=== PATIENT | male | born 1960 | race Caucasian/White ===

== ENCOUNTER 2024-01-17 21:31 | Inpatient (IN) | payer OTHER, SELFPAY ==
[2024-01-17 16:38] VITALS: BP 148/81
[2024-01-17 16:57] LABS: % Basophils 0.8 % (0-2); % Eosinophils 0.5 % (0-6); % Immature Granulocytes 0.3 % (0-0.5); % Lymphocytes 27.8 % (20.5-51.1); % Neutrophils 60.6 % (42.2-75.2); Absolute Basophils 0.1 10^3/uL (0-0.2); Absolute Monocytes 0.7 10^3/uL (0.1-0.6); Absolute Neutrophils 4.4 10^3/uL (1.4-6.5); Hematocrit 34.5 % (39.0-52.0); Hemoglobin 11.9 g/dL (13.0-18.0); Mean Corp Hgb Conc. 34.5 g/dL (33.0-37.0); Mean Corpuscular Hgb 29.7 pg (27.0-31.0); Mean Platelet Volume 9.7 fL (7.4-10.4); Nucleated Red Blood Cells % 0 % (-); Platelet Count 248 10^3/uL (130-400); Red Blood Cell Count 4.01 10^6/uL (4.70-6.10); Red Cell Dist. Width 12.9 % (11.5-14.5); White Blood Cell Count 7.3 10^3/uL (4.8-10.8)
[2024-01-17 17:11] LABS: ALT (SGPT) 20 U/L (0-50); AST (SGOT) 25 U/L (17-59); Albumin 3.8 g/dl (3.5-5.0); Alkaline Phosphatase 119 U/L (38-126); Blood Urea Nitrogen 9 mg/dl (9-20); Calcium 8.6 mg/dl (8.4-10.2); Carbon Dioxide 27 mmol/L (22-30); Chloride 97 mmol/L (98-107); Glucose 123 mg/dl (70-99); Potassium 2.7 mmol/L (3.5-5.1); Sodium 131 mmol/L (135-145); Total Bilirubin 2.4 mg/dl (0.2-1.3); Total Protein 7.3 g/dl (6.3-8.2); eGFR > 60.00
[2024-01-17 17:18] LABS: NT-proBNP 458 pg/ml
[2024-01-17 17:21] VITALS: BP 129/87
[2024-01-17 17:25] VITALS: BMI 29.5
[2024-01-17 17:55] VITALS: BP 122/83
[2024-01-17] MEDS: KCL 40 MEQ PO ×2 (17:57→22:46)
--- NOTE | 2024-01-17 17:57 | ED.GENMED ---
Addendum entered and electronically signed by Gigi Beth DO 01/17/24 19:33:
Update
reviewed the clinical surge with the patient he tells me his son had a valvular surgery at age 26 for the patient was referred to his PCP underwent echocardiogram recently in the past few years that patient states was okay but he did have a dilated
aorta
I was able to review the report, he did have a dilated aorta also had mitral regurg and mild to moderate
Original Note:
History of Present Illness
General
Chief Complaint: Swelling
Source: patient
Exam Limitations: none
Time Seen by Provider: 01/17/24 17:19
Nursing documentation reviewed up to this point in time: agreed with
Travel History
Have you had any contact with someone who has COVID-19?: No
Do you have any symptoms of coronavirus? Fever > 100 degrees, chills, cough, shortness of breath, sore throat, loss of taste or smell, muscle aches, or headache?: No
History of Present Illness
History of Present Illness:
63-year-old male history of hypertension on hydrochlorothiazide and enalapril also amlodipine Lipitor
Presents from PCP office for evaluation of scrotal edema lower extremity edema shortness of breath 10 pound weight gain
Symptoms started a few weeks ago when he was in [place] he had a flulike illness fairly severe he states, treated with antibiotics, developed edema of his scrotum lower extremities went to [place] on a trip states friends noticed that his legs
were swollen states he is short of breath the past day or so, has been able to lie flat at night, no history of heart failure
Past History
Past History
ED Past Medical History: HTN, Hypercholesterolemia and Psychiatric
ED Past Surgical History: Orthopedic
Social History
Tobacco: Non-smoker
Alcohol: None
Drug: None
Personal:
Living: with family
Employment: Employed
Review of Systems
Review of Systems
All Other Systems: Not applicable
Constitutional: Reports weight gain; Denies fatigue
EENT: Reports no symptoms
Respiratory: Reports trouble breathing
Cardiac: Denies chest pain or palpitations
ABD/GI: Reports other (Bloating in his lower abdominal pannus)
: Reports other (Scrotum swelling)
Musculoskeletal: Reports no symptoms
Skin: Reports no symptoms
Neurological: Reports no symptoms
Endocrine: Reports no symptoms
Hematologic/Lymphatic: Reports no symptoms
Phy Exam
Physical Exam
Physical Exam:
Physical Exam
General: no apparent distress, not acutely ill
Neck: Positive JVD
Heart: Regular
Lungs: No crackles
Abdomen: Soft, mild anasarca in the abdominal pannus into the scrotum
Neuro: alert and oriented. no focal neurological deficits
Skin: no rash
Psychiatric: well kept. interactive and cooperative
Extremities: 2+ edema
Scores
Heart Failure Risk
Heart Failure Risk Score: Yes
History of Stroke or TIA: No
History of intubation for respiratory distress: No
Heart rate on ED arrival >/= 110: No
SaO2 <90% on arrival on room air: No
HR >/=110 during 3min walk test (or too ill to perform test): Yes
ECG has acute ischemic changes: No
Urea >/=12mmol/L (BUN 33.6mg/dL): No
Serum CO2>/=35mmol/L: No
Troponin I or T elevated to CA Level (0.4mg/dL): No
NT-proBNP >/=5,000ng/L (5,000pg/ml): No
HF Risk Score: 2
Admission Status: MEDIUM RISK 9.2% Consider observation or discharge to home with homecare & f/u visit to PCP/[employer]fuels [employer] Manager, or SNF for treatment
Course
Orders/Labs/Results
Orders:
Orders
01/17/24 16:50
BNP [NT-proBNP] Urgent
Complete Blood Count/With Diff Urgent
Comprehensive Metabolic Panel Urgent
Magnesium Urgent
Comment: ADD ON
01/17/24 17:47
CR Chest - 2 Views Urgent
Comment:
Reason For Exam: sob chf
01/17/24 17:48
Add On- LAB Urgent
Tests Added?: magnesium
Potassium Chloride [KCl] 40 meq PO NOW STA
01/17/24 17:54
Electrocardiogram (*1) Urgent
Reason for Study: Heart Failure, Left
EKG- Treatment ONCE
01/17/24 17:56
Troponin I Urgent
01/17/24 17:58
Potassium Chloride [KCl] 40 meq 0.9% Sodium Chloride 250 ml [Nss] 250 ml IV NOW
01/17/24 18:38
Furosemide [Lasix] 40 mg IV NOW STA
Abnormal Lab Results
01/17/24
16:50
RBC 4.01 L 10^6/uL
(4.70-6.10)
Hgb 11.9 L g/dL
(13.0-18.0)
Hct 34.5 L %
(39.0-52.0)
Absolute Monos (auto) 0.7 H 10^3/uL
(0.1-0.6)
Monocytes % 10.0 H %
(1.7-9.3)
Sodium 131 L mmol/L
(135-145)
Potassium 2.7 L* mmol/L
(3.5-5.1)
Chloride 97 L mmol/L
(98-107)
Creatinine 0.6 L mg/dL
(0.7-1.3)
Glucose 123 H mg/dl
(70-99)
Total Bilirubin 2.4 H mg/dl
(0.2-1.3)
01/17/24 16:50
01/17/24 16:50
Vital Signs
Initial and Last Documented VS:
Initial Vital Signs
Temp Pulse Resp BP Pulse Ox
97.9 F 104 16 148/81 96
01/17/24 16:38 01/17/24 16:38 01/17/24 16:38 01/17/24 16:38 01/17/24 16:38
Last Documented Vital Signs
Temp Pulse Resp BP Pulse Ox
97.9 F 97 11 123/87 99
01/17/24 16:38 01/17/24 19:00 01/17/24 19:00 01/17/24 18:42 01/17/24 19:00
MDM/Problems Addressed
Differential Diagnosis Includes:
Heart failure poststreptococcal glomerulonephritis cardiomyopathy postviral cardiomyopathy dependent edema intra-abdominal process
MDM/Problems Addressed:
Lower extremity edema scrotal edema
Chronic conditions affecting care: HTN
Acute Exacerbation and/or Progression of Chronic Illness: HTN
*Radiology
Radiology exam reviewed: preliminary read by ED provider
*Pulse Oximetry
Patient hypoxic: no
*Toggler Interpretation
Rate: normal
Interpretation: normal
Heart Rate: 78
Rhythm: sinus
*Critical Care Note
Total Time (30-74mins, 75-104mins- exclusive of procedures): Not Applicable
Update Note
Update Note:
6:45 PM chest x-ray proBNP noted, troponin pending, will start diuretics, will replete his potassium first,
ED Attending Note
-
Portions of this chart may have been created with voice recognition software.� Occasional wrong word or��sound alike� substitutions may have occurred due to the inherent limitations of voice recognition software.
Discharge Plan
Departure
Patient Disposition: Admit
Date of Disposition: 01/17/24
Time of Disposition: 19:22
Admit to: Telemetry
Presentation/result/management discussed w/ accepting MD/DO: Hospitalist
Patient with high blood pressure during this ER visit?: Yes
Condition: Fair
Discharge Problem:
Scrotal edema, CHF (congestive heart failure)
Prescriptions:
No Action
atorvastatin [Lipitor] 20 mg Tablet
20 mg PO HS
enalapril maleate 10 mg Tablet
10 mg PO DAILY
tamsulosin [Flomax] 0.4 mg Capsule
0.4 mg PO QPM
amlodipine [Norvasc] 10 mg Tablet
10 mg PO DAILY
hydrochlorothiazide 25 mg Tablet
25 mg PO DAILY
escitalopram oxalate [Lexapro] 20 mg Tablet
20 mg PO DAILY
clonazepam 0.5 mg Tablet
0.25 mg PO DAILYPRN PRN (Reason: anxiety)
ibuprofen [Advil] 200 mg Tablet
400 mg PO BIDPRN PRN (Reason: mild pain)
Referrals:
Daquan Lewis CRNP [Family Provider] -
Interventions
Interventions:
*Risk Screen - Suicide Last Done: 01/17/24 17:25
*General Assessment Last Done: 01/17/24 16:41
*Neglect/Abuse Screening Last Done: 01/17/24 17:25
ED- Fall Risk Assessment Last Done: 01/17/24 17:25
*ED COVID-19 Vaccine History Last Done: 01/17/24 16:41
ED- Cardiac Assessment Last Done: 01/17/24 17:25
ED- Pulmonary Assessment Last Done: 01/17/24 17:25
ED-Skin Assessment Last Done: 01/17/24 17:25
[2024-01-17 18:00] VITALS: BP 123/87
[2024-01-17 18:29] LABS: Troponin I < 0.012 ng/ml
[2024-01-17] MEDS: KCL 270 MEQ IV (18:30)
[2024-01-17 18:36] LABS: Magnesium 2.1 mg/dl (1.6-2.3)
[2024-01-17] MEDS: LASIX 40 MG IV (18:42)
[2024-01-17 19:00] VITALS: BP 109/82
--- NOTE | 2024-01-17 20:54 | HPS.HSE ---
Family Physician
-
Family Physician: LILY Rutledge
Chief Complaint
-
SOB/Leg and Testicular Swelling x weeks
History of Present Illness
63yo M with PMH HTN/HLD, Anxiety/Depression, Hyponatremia, BPH presents to ER c/o SOB/Cough/Testicular swelling worsening over past fwe weeks. Pt states at end of november he had covid. In december he was then found to have the flu. He had associated
cough and was also treated with unknown course of abx. In early January pt started to notice testicular swelling which improved with sitting up right. He then went on vacation in [place] 01/07/2024 and since then has noticed increase SOB with mild
dyspnea, nonproductive cough, and increasing leg/testicular swelling. Denies leg pain or erythema. Denies F/C. Pt does state last year he followed with electric motor repairman Dr. Romero because his son was diagnosed with valvular heart disease at age 32yo but
he underwent echo last which only showed aortic root dilation (4.1cm), Mild-Mod MR, EF 55-60%. Denies dizziness/LH, CP, Palps, wheezing, abd pain, n/v/d/c, dsyuria, calf or leg pain.
ER course: Presents with V.S.S. Na 131, K 2.7, BUN/Cr 9/0.6, Trop 0.012, BNP 458, Tbili 2.4 (LFTs otherwise wnl). S/P 40mg IV lasix and 40meq KCL IV and 40meq KCL PO in ER.
Medical History
Past Medical History
Past Medical History: Reports Other (HTN/HLD, Anxiety/Depression, BPH, Hx COVID/Flu (11/2023-12/2023))
Past Surgical History: Reports Other (Right Shoulder Dislocation Sx)
Social History
Tobacco: Non-smoker
Alcohol: Occasional (1-2 beers twice weekly)
Drug: None
Family History
Family History: Other (Mother: Alzheimers; Sister: Myeloma; Brother: Colon Cancer; Son: Valvular Heart Disease; Father: Hodgkins Lymphoma)
Allergies / Home Medications
Allergies reflects when Allergies were last updated in [facility].
Home Medications with original date entered in [facility]
Allergy/Medication List:
Allergies
Allergy/AdvReac Type Severity Reaction Status Date / Time
No Known Allergies Allergy Verified 01/17/24 16:45
Home Medications
amlodipine 10 mg tablet (Norvasc) 10 mg PO DAILY 01/17/24
atorvastatin 20 mg tablet (Lipitor) 20 mg PO HS 01/17/24
clonazepam 0.5 mg tablet 0.25 mg PO DAILYPRN PRN anxiety 01/17/24
enalapril maleate 10 mg tablet 10 mg PO DAILY 01/17/24
escitalopram oxalate 20 mg tablet (Lexapro) 20 mg PO DAILY 01/17/24
hydrochlorothiazide 25 mg tablet 25 mg PO DAILY 01/17/24
ibuprofen 200 mg tablet (Advil) 400 mg PO BIDPRN PRN mild pain 01/17/24
tamsulosin 0.4 mg capsule (Flomax) 0.4 mg PO QPM 01/17/24
Review of Systems
-
A 12 point ROS was completed and negative except as noted: Yes
Physical Exam
Vital Signs
Vital Signs
Temp Pulse Resp BP Pulse Ox
97.9 F 97 11 123/87 99
01/17/24 16:38 01/17/24 19:00 01/17/24 19:00 01/17/24 18:42 01/17/24 19:00
Physical Exam
General: Well Developed, Well Nourished and No Apparent Distress
HEENT: NormoCephalic, Moist mucous membranes and Atraumatic
Respiratory: Clear
Cardiac: S1/S2 and Regular Rhythm; No Murmur or Rub
GI: Soft, Non Tender, Non Distended and Normal Bowel Sounds; No Organomegaly
Rectal: Deferred by Provider
Genito-urinary: Other (Maximiliano Ball Size Testicular swelling, no erythema or TTP. )
Musculoskeletal: No Clubbing, No Cyanosis and Other (+B/L LE Edema 2-3+)
Skin: No Rash
Neuro: Awake, Alert, AO x 3 and Nonfocal/grossly intact
Hematologic/Lymphatic: No Lymphadenopathy
Psych: Calm
Laboratory Results
-
01/17/24 16:50
01/17/24 16:50
Laboratory Results
Total Bilirubin 2.4 mg/dl (0.2-1.3) H 01/17/24 16:50
AST 25 U/L (17-59) 01/17/24 16:50
ALT 20 U/L (0-50) 01/17/24 16:50
Alkaline Phosphatase 119 U/L (38-126) 01/17/24 16:50
Troponin I < 0.012 ng/ml 01/17/24 17:56
Data Reviewed
-
Diagnostic Radiology: Image Personally Visualized and interpreted
Lab Data: Labs Reviewed by me
Old Records: Reviewed
Impression/Plan
-
Volume Overload 2/2 Suspected New Onset CHF
- BNP 458. CXR with b/l small effusions. No hypoxia. 2-3+ pitting edema with tennis ball size testicular swelling.
- TTE reviewed 11/2022:
Normal biventricular size and systolic function without regional wall motion
�abnormality. Estimated LVEF 55-60%.
�Mild to moderate mitral regurgitation.
�Aortic sclerosis without stenosis.
�Dilated aortic root measures 4.1 cm at SOV. Dilated proximal ascending aorta
�measures 4.7 cm.
- Repeat TTE. 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
- S/P 40mg IV lasix in ER. Continue 40mg IV daily (holding home HCTZ). Monitor electrolytes closely and replete accordingly
- Cardiology consulted.
Abnormal EKG (TWI/QT prolongation)
- No chest pain. Trop 0.012. EKG NSR @ 98bpm, TWI II-AVF, QTC 513ms (no prior for comparison)
- Follow up TTE. Replete electrolytes and repeat EKG for AM
- Check Lipids/A1C
- Cardio consulted.
Hypokalemia
- K 2.7. S/P 120meq in total in ER, Repeat in AM
Hyponatremia
- Na 127. Likely hypoosmotic hypervolemic etiology. Trend with IV diuresis. 1500cc fluid restriction.
Hyperbilirubinemia
- Suspect passive liver congestion in setting of CHF. Repeat with in AM with IV diuresis.
HTN/HLD
- BP wnl on admission. Will hold home amlodipine/hctz to allow for additional diuresis
- Continue home chadwick-i. Follow trends on IV lasix.
Anxiety/Depression
- Continue home benzo prn.
Code status: Full Code
Diet: 1500cc fluid restriction, low cholesterol diet
PPx: Lovenox.
[2024-01-17 22:10] VITALS: BP 142/91; BMI 28.3
--- NOTE | 2024-01-17 22:19 | PTCARENOTE ---
pt arrived from ed, walked in unassisted, tele placed, VSS pt arrived with IV KCL running. see MAR and assessment for further details. call camp within reach.
[2024-01-17] MEDS: LIPITOR 20 MG PO (22:46)
[2024-01-18 03:15] VITALS: BP 110/69
[2024-01-18 06:00] VITALS: BMI 28.0
--- NOTE | 2024-01-18 07:34 | W.PN.HOSP.TC ---
Today's Communication/Plan
-
see bold
Assessment / Plan
Assessment / Plan
Gen: NAD, AAOx3.
Eyes: EOMI, PERRLA, no scleral icterus.
Neck: supple.
CV: RRR, +S1/S2, no m/r/g.
Resp: CTAB, no rales, wheezes, or rhonchi.
Abd: +BS, soft, NT, ND
Skin: No rashes. Trace LE edema
Neuro: CN 2-12 intact, non-focal.
Psych: Normal mood and affect.
CXR: Small bilateral pleural effusions.
Acute CHF:
-BNP 458. CXR with b/l small effusions. No hypoxia.
-check echo
-cont IV lasix
-daily wts, I/Os
-c/s cards
Abnormal EKG (TWI/QT prolongation)
-No chest pain. Trop 0.012. EKG NSR @ 98bpm, TWI II-AVF, QTC 513ms (no prior for comparison)
-Follow up TTE. Replete electrolytes and repeat EKG for AM
-Check Lipids/a1c
-c/s cards
Other problems:
Hypokalemia: s/p 120meq in total in ER, trend
Hyponatremia, mild, likely due to CHF, trend with IV Lasix. cont FR 1500cc/day.
Hyperbilirubinemia: suspect passive liver congestion in setting of CHF, trend.
Essential HTN: Home norvasc/HCTZ on hold, cont ACEi
HLD: cont statin
Anxiety/Depression: cont PRN benzo
Full/Lovenox
Anticipated Discharge: Within 24 hours
Subjective/Interval History
-
Date of Service: January 18, 2024
Minimal SOB (greatly improved since admission)
Objective Data
-
Labs:
Laboratory Results
01/18/24
06:46
WBC Pending
Hgb Pending
Hct Pending
Plt Count Pending
Sodium Pending
Potassium Pending
Chloride Pending
Carbon Dioxide Pending
BUN Pending
Creatinine Pending
Glucose Pending
Calcium Pending
Total Bilirubin Pending
AST Pending
ALT Pending
Alkaline Phosphatase Pending
Vital Signs:
Vital Signs
Temp Pulse Resp BP Pulse Ox
99.2 F 97 16 110/69 95
01/18/24 03:15 01/18/24 03:15 01/18/24 03:15 01/18/24 03:15 01/18/24 03:15
I&O
01/17/24 01/18/24 01/19/24
06:59 06:59 06:59
Intake Total 480 / 480
Balance 480 / 480
[2024-01-18] MEDS: LEXAPRO 20 MG PO (07:43)
[2024-01-18] MEDS: VASOTEC 10 MG PO (07:43)
[2024-01-18] MEDS: LASIX 40 MG IV ×2 (07:45→17:03)
[2024-01-18 07:48] VITALS: BP 130/81
[2024-01-18] MEDS: LASIX IV (07:55)
[2024-01-18 08:25] LABS: Hematocrit 32.8 % (39.0-52.0); Hemoglobin 11.2 g/dL (13.0-18.0); Mean Corp Hgb Conc. 34.1 g/dL (33.0-37.0); Mean Corpuscular Hgb 29.4 pg (27.0-31.0); Mean Corpuscular Volume 86.1 fL (80.0-94.0); Mean Platelet Volume 10.2 fL (7.4-10.4); Platelet Count 239 10^3/uL (130-400); Red Blood Cell Count 3.81 10^6/uL (4.70-6.10); Red Cell Dist. Width 13.1 % (11.5-14.5); White Blood Cell Count 5.8 10^3/uL (4.8-10.8)
[2024-01-18 08:34] LABS: ALT (SGPT) 18 U/L (0-50); AST (SGOT) 23 U/L (17-59); Albumin 3.4 g/dl (3.5-5.0); Alkaline Phosphatase 112 U/L (38-126); Blood Urea Nitrogen 11 mg/dl (9-20); Calcium 8.4 mg/dl (8.4-10.2); Carbon Dioxide 27 mmol/L (22-30); Chloride 103 mmol/L (98-107); Direct Bilirubin 0.5 mg/dl (0.0-0.4); Estimated Creatinine Clearance 110 ml/min; Glucose 101 mg/dl (70-99); HDL Cholesterol 34 mg/dl; LDL Cholesterol, Calculated 77 mg/dl; Magnesium 2.2 mg/dl (1.6-2.3); Potassium 3.3 mmol/L (3.5-5.1); Sodium 136 mmol/L (135-145); Total Bilirubin 1.6 mg/dl (0.2-1.3); Total Cholesterol 122 mg/dl (50-199); Total Protein 6.7 g/dl (6.3-8.2); Triglyceride 58 mg/dl (10-149); Very Low Density Lipoprotein 11 mg/dl (0-30); eGFR > 60.00
[2024-01-18 09:05] LABS: TSH Reflex To Free T4 2.01 uIU/ml (0.47-4.68)
[2024-01-18 09:12] LABS: D-Dimer 2.72 ug/mlFEU (0.00-0.50)
[2024-01-18 10:57] LABS: Glycohemoglobin (HgbA1c) 6.6 % (4.0-5.6)
[2024-01-18 11:00] VITALS: BP 119/82
--- NOTE | 2024-01-18 11:58 | CON.CAR ---
Addendum entered and electronically signed by Naomy Mari MD 01/18/24 16:23:
I saw and examined the patient.
The FIRE CONTROL MECHANIC's note was reviewed and I agree with the note.
Comment: �63 y/o pt with�HTN,hyperlipidemia, dilated aortic root who had COVID end of Nov 2023, then flu ( did not get flu vacine)in .Jan 05 he becan to note scrotal edema and cook. He then has le edema. He was sent in by pcp. On exam he has
elevated jvp, lungs cta, rrr s1 s2, 1+ pitting edema b/l. NSR with NS t wave abnormality. CXR with small bl pleural effusion. Labs signficant for hypokalemia. Presentation c/w CHF. Will get echo Saturday. Felling better with diuresis. Will add
spironolactone in lieu of HCTZ. GDMT as indicated.
Original Note:
Consultation
Consultation Request
Date/Time Consultation Requested: 01/18/2024 0800
Date/Time Consultation Performed: 01/18/2024 1100
Requesting Provider: Dr. Scott
Performing Provider: Dr. Mari
Reason for Consultation: LE edema, scrotal edema
Medical History
-
Chief Complaint: LE edema, scrotal edema
History of Present Illness:
63 y/o pt with HTN,hyperlipidemia, dilated aortic root who had COVID end of Nov 2023, then flu ( did not get flu vacine) . He required OP antibiotics for the flu per his report. He had plans to go to [facility] 01/07-01/16/24. He noticed a few days
prior he had scrotal edema. He did not note SOB/COOK at that time. He went on his trip. His cousin noted bilat LE edema while there. he also noted scrotal edema was worse. He returned and saw PCP 01/17/24 who recommended eval in ER. Pt . noted with
scrotal and bilat LE edema. BNP 458. His potassium was 2.7 on admit as well . He does not limit salt as an OP. States he was compliant with his meds. IV lasix given. He states weight is down about 9 pounds. Edema is much better.
Past Medical History
Past Medical History: Other (HTN, hyperlipidemia, dilated aortic root ,depression,BPH)
Past Surgical History: Orthopedic
Social History
Tobacco: Non-Smoker
Alcohol: Occasional
Personal:
Living: With Family
Family History
Family History: Other (SOn with valve replacement at age 32)
Allergies / Home Medications
Allergy/AdvReac Type Severity Reaction Status Date / Time
No Known Allergies Allergy Verified 01/17/24 16:45
Medication Instructions Recorded Confirmed Type
amlodipine 10 mg tablet (Norvasc) 10 mg PO DAILY 01/17/24 01/17/24 History
atorvastatin 20 mg tablet (Lipitor) 20 mg PO HS 01/17/24 01/17/24 History
clonazepam 0.5 mg tablet 0.25 mg PO DAILYPRN PRN anxiety 01/17/24 01/17/24 History
enalapril maleate 10 mg tablet 10 mg PO DAILY 01/17/24 01/17/24 History
escitalopram oxalate 20 mg tablet 20 mg PO DAILY 01/17/24 01/17/24 History
(Lexapro)
hydrochlorothiazide 25 mg tablet 25 mg PO DAILY 01/17/24 01/17/24 History
ibuprofen 200 mg tablet (Advil) 400 mg PO BIDPRN PRN mild pain 01/17/24 01/17/24 History
tamsulosin 0.4 mg capsule (Flomax) 0.4 mg PO QPM 01/17/24 01/17/24 History
Physical Exam
Vital Signs
Temp Pulse Resp BP Pulse Ox
98.0 F 107 18 119/82 96
01/18/24 11:00 01/18/24 11:00 01/18/24 11:00 01/18/24 11:00 01/18/24 11:00
Lab Results
01/18/24 06:46
01/18/24 06:46
Troponin I < 0.012 ng/ml 01/17/24 17:56
[id number]-B-Cchtdumjbjc Pept 458 pg/ml 01/17/24 16:50
Physical Exam
General: Well Developed, Well Nourished and No Apparent Distress
Respiratory: Crackles (bases bilat)
Cardiac: S1/S2 and Regular Rhythm
Breast: N/A
GI: Soft, Non Tender and Normal Bowel Sounds
Rectal: Deferred by Provider
Musculoskeletal: No Clubbing, No Cyanosis and No Edema
Skin: Warm and Dry
Neuro: AO x 3
Psych: Calm
Impression / Plan
-
Acute HFpEF:
-h/o HTN
-prior echo with normal EF, mild valvular dz
-responding to lasix, weight down 4 kg , edema improved
-update echo, trop neg
-fluid/sodium restriction
-OP ischemic eval
-of note prior CT of chest with what appears to be calcification of the pericardium. This covers greater than 50% of the circumference of the heart.
hypokalemia:
-repleted ( was on HCTZ as OP) , con't supplement
HTN:
-con't meds
Hyperlipidemia: on chronic statin
DM: hgba1c 6.6
Data Reviewed
-
EKG: Tracing Personally Visualized and interpreted (NSR 96 bpm non specific T wave abn )
Radiology: Image Personally Visualized and interpreted and Report Reviewed by me (CXR small bilat pleural effusions )
Medical Tests (Nuc Med, Echo etc): Report Reviewed by me (Echo 11/29/22 EF 55-60, mild-mod MR, ascl, dilated aortic root 4.1 prox Asc Ao 4.7cm )
Labs: Labs Reviewed by me, Discussed with Physician and Discussed with Patient
Old Records: Reviewed (OP cardiology notes 02/01/23)
[2024-01-18] MEDS: KCL 20 MEQ PO ×2 (13:19→20:58)
[2024-01-18] MEDS: ALDACTONE 12.5 MG PO (13:20)
[2024-01-18 15:08] VITALS: BP 108/73
[2024-01-18] MEDS: FLOMAX 0.400000000000000022 MG PO (17:03)
[2024-01-18] MEDS: LOVENOX 40 MG SC (17:03)
[2024-01-18 19:00] VITALS: BP 113/78
[2024-01-18] MEDS: LIPITOR 20 MG PO (20:58)
[2024-01-18 23:00] VITALS: BP 116/79
[2024-01-19 03:00] VITALS: BP 111/78
[2024-01-19 06:00] VITALS: BMI 27.1
[2024-01-19 07:53] VITALS: BP 126/86
[2024-01-19 08:01] LABS: Blood Urea Nitrogen 16 mg/dl (9-20); Calcium 8.5 mg/dl (8.4-10.2); Carbon Dioxide 26 mmol/L (22-30); Chloride 99 mmol/L (98-107); Estimated Creatinine Clearance 110 ml/min; Glucose 103 mg/dl (70-99); Potassium 3.2 mmol/L (3.5-5.1); Sodium 137 mmol/L (135-145); eGFR > 60.00
[2024-01-19] MEDS: LASIX 40 MG IV ×2 (09:24→16:49)
[2024-01-19] MEDS: ALDACTONE 12.5 MG PO (09:26)
[2024-01-19] MEDS: KCL 20 MEQ PO ×2 (09:27→21:09)
[2024-01-19] MEDS: LEXAPRO 20 MG PO (09:28)
[2024-01-19] MEDS: VASOTEC 10 MG PO (09:28)
--- NOTE | 2024-01-19 10:03 | CM ---
fountain manager reviewed patient's chart and met with patient and patient lives with his spouse is independent with adl's and ambulation, no dme, patient drives, patient has a prescription plan and patient uses [facility].
Plan; Home no needs when stable.
[2024-01-19 11:15] VITALS: BP 116/79
--- NOTE | 2024-01-19 13:14 | W.PN.HOSP.TC ---
Today's Communication/Plan
-
Continue current diuretic regimen.
Replete potassium.
Echo in AM.
DC planning
Assessment / Plan
Assessment / Plan
Acute CHF:
-BNP 458. CXR with b/l small effusions. No hypoxia.
- Improved wt and symptoms
-check echo
-cont IV lasix
-daily wts, I/Os
- cards following
Hypokalemia -replete
Abnormal EKG (TWI/QT prolongation)
-No chest pain. Trop 0.012. EKG NSR @ 98bpm, TWI II-AVF, QTC 513ms (no prior for comparison)
-Follow up TTE.
Hyponatremia, mild, likely due to CHF, trend with IV Lasix. cont FR 1500cc/day.Normalized
Hyperbilirubinemia: suspect passive liver congestion in setting of CHF, trend.
Essential HTN: Home norvasc/HCTZ on hold, cont ACEi
HLD: cont statin
Anxiety/Depression: cont PRN benzo
Full/Lovenox
Anticipated Discharge: Within 24 hours
Subjective/Interval History
-
Date of Service: January 19, 2024
Feeling improved with less swelling. Urinating quite a bit with diuretics.
Objective Data
-
Labs:
Laboratory Results
01/19/24
05:53
Sodium 137
Potassium 3.2 L
Chloride 99
Carbon Dioxide 26
BUN 16
Creatinine 0.6 L
Glucose 103 H
Calcium 8.5
Vital Signs:
Vital Signs
Temp Pulse Resp BP Pulse Ox
99.4 F 101 16 116/79 95
01/19/24 11:15 01/19/24 11:15 01/19/24 11:15 01/19/24 11:15 01/19/24 11:15
I&O
01/18/24 01/19/24 01/20/24
06:59 06:59 06:59
Intake Total 480 / 480 1440 / 1440
Balance 480 / 480 1440 / 1440
Review of Systems
-
Respiratory: Denies Cough or Trouble Breathing
Cardiac: Denies Chest Pain or Palpitations
Abdomen/GI: Denies Nausea
Neuro: Denies Dizzy
Physical Exam
-
General: No Apparent Distress
HEENT: Moist Mucous Membranes
Respiratory: Clear to Auscultation
Cardiac: Regular Rhythm and S1/S2
Musculoskeletal: Negative No Edema (1+ bl)
Neuro: AO x 3
Psych: Calm
Data Reviewed
-
Labs: Labs Reviewed by me
--- NOTE | 2024-01-19 15:10 | W.PN.CD ---
Today's Communication / Plan
-
continue diuresis
echo tomorrow
npo p incase cath indicated
Impression / Plan
-
Acute HFpEF:
-h/o HTN
-prior echo with normal EF, mild valvular dz
-responding to lasix, weight down ~7kg from admission , edema improved
-continue IV lasix with intensive monitoring of labs and bp
-update echo, trop neg
-will keep NPO incase cath indicated
-fluid/sodium restriction
-of note prior CT of chest with what appears to be calcification of the pericardium. This covers greater than 50% of the circumference of the heart.---wasn't appreciated on echo, no h/o of tb
Hyponatremia:hypervolemic
-improving with diuresis now normal
hypokalemia:
-repleted ( was on HCTZ as OP) , con't supplement
HTN:
-con't meds
Hyperlipidemia: on chronic statin
DM: hgba1c 6.6
Subjective:
feeling so much better, best he has ever slept. He denies cp.
Physical Exam
Vital Signs/Labs
Vital Signs
Temp Pulse Resp BP Pulse Ox
99.4 F 101 16 116/79 95
01/19/24 11:15 01/19/24 11:15 01/19/24 11:15 01/19/24 11:15 01/19/24 11:15
01/18/24 01/19/24 01/20/24
06:59 06:59 06:59
Actual Weight 76.26 kg 73.89 kg
01/18/24 06:46
01/19/24 05:53
Magnesium 2.2 mg/dl (1.6-2.3) 01/18/24 06:46
Triglycerides 58 mg/dl (10-149) 01/18/24 06:46
LDL Cholesterol, Calc 77 mg/dl 01/18/24 06:46
VLDL Cholesterol, Calc 11 mg/dl (0-30) 01/18/24 06:46
HDL Cholesterol 34 mg/dl 01/18/24 06:46
01/17/24
16:50
Vsy-Z-Kecgrhaheyf Pept 458
LAB Results
01/17/24
17:56
Troponin I < 0.012
Physical Exam
Constitutional: No acute distress
Cardiovascular: Rhythm & rate is regular, Pedal edema is absent, Systolic murmur absent, Diastolic murmur absent and JVD present (14cm H20)
Respiratory: Respiratory effort normal, Lungs clear to auscul., Wheeze Absent and Crackles Absent
Neuro/Psych: Alert and AO x 3
Data Reviewed
-
Date of Service: January 19, 2024
[2024-01-19 15:33] VITALS: BP 113/78
[2024-01-19] MEDS: FLOMAX 0.400000000000000022 MG PO (16:49)
[2024-01-19] MEDS: LOVENOX 40 MG SC (16:49)
[2024-01-19 19:04] VITALS: BP 125/72
[2024-01-19] MEDS: LIPITOR 20 MG PO (21:09)
[2024-01-19 23:19] VITALS: BP 130/85
[2024-01-20 03:07] VITALS: BP 127/83
[2024-01-20 06:00] VITALS: BMI 26.4
[2024-01-20 07:00] VITALS: BP 122/82
[2024-01-20 07:17] LABS: Blood Urea Nitrogen 18 mg/dl (9-20); Calcium 8.8 mg/dl (8.4-10.2); Carbon Dioxide 31 mmol/L (22-30); Chloride 96 mmol/L (98-107); Estimated Creatinine Clearance 82 ml/min; Glucose 113 mg/dl (70-99); Potassium 3.5 mmol/L (3.5-5.1); Sodium 136 mmol/L (135-145); eGFR > 60.00
[2024-01-20] MEDS: ALDACTONE 12.5 MG PO (09:14)
[2024-01-20] MEDS: KCL 20 MEQ PO (09:14)
[2024-01-20] MEDS: LEXAPRO 20 MG PO (09:14)
[2024-01-20] MEDS: VASOTEC 10 MG PO (09:14)
[2024-01-20] MEDS: LASIX 40 MG IV (09:15)
[2024-01-20 11:00] VITALS: BP 130/89
--- NOTE | 2024-01-20 12:27 | W.PN.HOSP.TC ---
Today's Communication/Plan
-
Follow Cards recs and will start dc planning based on it.
Assessment / Plan
Assessment / Plan
Acute CHF:
-BNP 458. CXR with b/l small effusions. No hypoxia.
- Improved wt and symptoms
-cont diuretics per cards
-daily wts, I/Os
- cards following
Moderate pericardial effusion with pericardial calcification-await further cards input.
Abnormal EKG (TWI/QT prolongation)
-No chest pain. Trop 0.012. EKG NSR @ 98bpm, TWI II-AVF, QTC 513ms (no prior for comparison)
Hyponatremia, mild, likely due to CHF, cont FR 1500cc/day.Normalized
Hyperbilirubinemia: suspect passive liver congestion in setting of CHF, trend.
Essential HTN: Home norvasc/HCTZ on hold, cont ACEi
HLD: cont statin
Anxiety/Depression: cont PRN benzo
Full/Lovenox
Anticipated Discharge: Today
Subjective/Interval History
-
Date of Service: January 20, 2024
Feeling improved.
Denies shortness of breath.
Objective Data
-
Labs:
Laboratory Results
01/20/24
06:32
Sodium 136
Potassium 3.5
Chloride 96 L
Carbon Dioxide 31 H
BUN 18
Creatinine 0.8
Glucose 113 H
Calcium 8.8
Vital Signs:
Vital Signs
Temp Pulse Resp BP Pulse Ox
98.2 F 96 18 130/89 95
01/20/24 11:00 01/20/24 11:00 01/20/24 11:00 01/20/24 11:00 01/20/24 11:00
I&O
01/19/24 01/20/24 01/21/24
06:59 06:59 06:59
Intake Total 1440 / 1440 1200 / 1200
Balance 1440 / 1440 1200 / 1200
Review of Systems
-
Constitutional: Denies Fever
EENT: Denies Sore Throat
Respiratory: Denies Cough or Trouble Breathing
Cardiac: Denies Chest Pain
Abdomen/GI: Denies Nausea or Vomiting
Neuro: Denies Dizzy
Physical Exam
-
General: No Apparent Distress
HEENT: Moist Mucous Membranes
Respiratory: Clear to Auscultation
Cardiac: Regular Rhythm and S1/S2
Neuro: AO x 3
Data Reviewed
-
Medical Tests (Nuc Med, Echo etc): Report Reviewed by me (echo)
Labs: Labs Reviewed by me
--- NOTE | 2024-01-20 12:30 | W.PN.CD ---
Addendum entered and electronically signed by Aquilse Tovar DO 01/20/24 14:12:
Echocardiogram and BMP in one week.
PCP needs to see in 48-72 hours to interpret PPD.
Original Note:
Today's Communication / Plan
-
Change furosemide to 80 mg PO daily.
Start dapagliflozin 10 mg daily. Case management consult.
Check ESR, CRP, NOAH, RF, PPD.
Outpatient cardiac MRI.
Consider outpatient pericardiocentesis, left/right heart catheterization.
Stable for outpatient follow up.
Impression / Plan
-
Impression/Plan: 63 y/o male with dilated aortic root, HTN and HLD admitted with new HFpEF after suffering from COVID, followed by influenza.
#Acute HFpEF:
-New diagnosis.
-Note prior CT of chest with what appears to be calcification of the pericardium. This covers greater than 50% of the circumference of the heart; this was not appreciated on prior echo.
-TTE shows preserved, low normal EF (52%) with calcified pericardium and a moderate/large anterior pericardial effusion.
-Responding to furosemide: weight down ~9kg from admission ,edema improved. Change furosemide to 80 mg PO daily.
-Start GDMT as hemodynamics and renal function will allow. Start dapagliflozin 10 mg daily.
#Calcified pericardium with pericardial effusion
-Chronic.
-See on prior CT scan, not commented on in prior echo.
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 effusive constrictive).
-Patient denies history of TB. Place PPD.
-No history of chest radiation.
-Check ESR, CRP, NOAH, RF.
-The IVC remains severely dilated/plethoric. No clear evidence of tamponade. Of note, septation was observed on one sub-xyphoid image, implying at least some organization (and thus chronicity) of the fluid.
-Diagnosis of constrictive pericarditis will be established by a conglomeration of invasive and non-invasive findings, including a cardiac MRI.
-This can be an outpatient workup.
#HTN
-Chronic, stable.
-Tolerating enalapril and spironolactone.
#Hyperlipidemia
-Chronic, stable.
-Continue statin.
-Goal LDL < 55.
#NIDDM
-New diagnosis.
-HbA1c = 6.6%.
-Starting dapagliflozin 10 mg daily for HFpEF. This will assist with glucose control.
Subjective/Interval History:
Weight down an additional 2 kg from yesterday (71.849 <-- 73.89 <-- 80.286).
Tolerating enalapril and spironolactone.
D-Dimer elevated at 2.72.
HCO3 rising, consistent with contraction alkylosis.
DATA:
TTE, 01/20/2024:
CONCLUSIONS
�Normal left ventricular size, wall thickness and systolic function.
�LV ejection fraction is 52% by Keith's method of discs.� Abnormal septal
�motion.
�No significant valvular disease.
�Moderate (1.9) cm� pericardial effusion anterior to the right ventricle without
�evidence of hemodynamic compromise.
�Bright pericardium along the posterior wall of the LV consistent with know
�pericardial calcification.
�Dilated aortic root at 4.3 cm.� Ascending aorta is 4.8 cm.
�Compared to previous echo on 11/29/22, the pericardial effusion is new.� The
�aortic measurements were 4.1 at SOV and 4.7 Asc Ao on the prior study.
CTA Chest, 06/14/2023:
IMPRESSION:
Redemonstration of mild ectasia of the ascending aorta. Maximal caliber is 4.1 cm. This is at the level of the right pulmonary artery. Consider follow-up CT� in one year for reevaluation.
Redemonstration of extensive calcification of the pericardium.
Physical Exam
Vital Signs/Labs
Vital Signs
Temp Pulse Resp BP Pulse Ox
36.8 C 96 18 130/89 95
01/20/24 11:00 01/20/24 11:00 01/20/24 11:00 01/20/24 11:00 01/20/24 11:00
01/19/24 01/20/24 01/21/24
11:59 11:59 11:59
Actual Weight 73.89 kg 71.849 kg
01/18/24 06:46
01/20/24 06:32
Magnesium 2.2 mg/dl (1.6-2.3) 01/18/24 06:46
Triglycerides 58 mg/dl (10-149) 01/18/24 06:46
LDL Cholesterol, Calc 77 mg/dl 01/18/24 06:46
VLDL Cholesterol, Calc 11 mg/dl (0-30) 01/18/24 06:46
HDL Cholesterol 34 mg/dl 01/18/24 06:46
01/17/24
16:50
[id number] Pept 458
LAB Results
01/17/24
17:56
Troponin I < 0.012
Physical Exam
Constitutional: No acute distress and Comfortable
EENT: Anicteric and Moist mucous membranes
Cardiovascular: Rhythm & rate is regular, Pedal edema is absent, Systolic murmur absent, Diastolic murmur absent, JVD present, S1S2 is normal and Murmur/rub/gallop absent
Respiratory: Respiratory effort normal, Lungs clear to auscul., Wheeze Absent, Crackles Absent and Rhonchi Absent
GI: Soft, Distention absent, Flat, Non tender and Normal bowel sounds
Neuro/Psych: AO x 3
Data Reviewed
-
Date of Service: January 20, 2024
Medical Decision Making: Reviewed Test Results, Independent Historian Assessment, Test Interpretation and Review of Case with other Provider
EKG: Tracing Personally Visualized and interpreted and Report Reviewed by me
Echo: Tracing Personally Visualized and interpreted and Report Reviewed by me
X-Ray/CT/US/MRI/NUC/PET: Image Personally Visualized and interpreted and Report Reviewed by me
Medical Tests (PFT, Pathology etc): Report Reviewed by me
Labs: Labs Reviewed by me and Labs Ordered by me
Old Records: Reviewed
[2024-01-20 14:19] VITALS: BP 113/88
[2024-01-20 15:03] LABS: Erythrocyte Sed Rate 59 mm/hour (0-20)
--- NOTE | 2024-01-20 15:13 | W.DS.TRANS ---
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
-
Discharge Instructions:
Discharge Diagnosis/Procedures CHF decompensation ;pericardial effusion
Diet 2 Gram Sodium
Activity As tolerated
Driving Restrictions As prior to admission
Bathing Restrictions None
Blood Work BMP blood work -arrange it through your PCP
Specialty Instructions Weigh Daily
Instructions: *PCP/Other [facility] Heart Failure Instructions
Stand-Alone Forms:
Changes to Home Medications: Yes
Discharge Medications:
DC Medications w/original date entered in [facility]
atorvastatin 20 mg tablet (Lipitor) 20 mg PO HS High Cholesterol 01/17/24
clonazepam 0.5 mg tablet 0.25 mg PO DAILYPRN PRN anxiety 01/17/24
enalapril maleate 10 mg tablet 10 mg PO DAILY Blood Pressure 01/17/24
escitalopram oxalate 20 mg tablet (Lexapro) 20 mg PO DAILY Depression 01/17/24
tamsulosin 0.4 mg capsule (Flomax) 0.4 mg PO QPM Urinary Issue 01/17/24
dapagliflozin propanediol 10 mg tablet (Farxiga) 10 mg PO DAILY #30 tabs 01/20/24
furosemide 80 mg tablet (Lasix) 80 mg PO DAILY #30 tabs 01/20/24
potassium chloride 20 mEq tablet,extended release(part/cryst) 20 meq PO DAILY #30 tabs 01/20/24
Home Medication Changes
New medication-potassium chloride, Lasix, Farxiga.
Discontinue medication-hydrochlorothiazide
Pending Results: Yes (PPD read; NOAH, rheumatoid factor)
--- NOTE | 2024-01-20 15:19 | W.DCSUMMARY ---
Discharge Summary
Discharge Data
Date of Admission: 01/17/24
Date of Discharge: 01/20/24
-
Pending Results: Yes (Rheumatoid factor, NOAH, PPD read)
Hospital Course
Primary diagnosis:
Acute CHF decompensation with preserved EF
Moderate pericardial effusion with pericardial calcification
Secondary diagnosis:
Essential hypertension
Hyperlipidemia
Hospital course:
63-year-old gentleman with history of hyperlipidemia presented with a leg swelling, shortness of breath, weight gain and scrotal swelling. He was discovered to be in acute CHF. Was seen by cardiology. He had a good response with diuresis-his
weight went down from 177 pounds to 158 pounds. There was no evidence of HI. Echocardiogram showed EF 52%. Moderate [1.9] centimeters pericardial effusion anterior to the right ventricle without evidence of hemodynamic instability. Bright
pericardium along the posterior wall of the LV consistent with know �pericardial calcification.Compared to previous echo on 11/29/22, the pericardial effusion is new.
With no hemodynamic instability pleural effusion medical staff physician requested NOAH, rheumatoid factor, ESR, CRP and place the PPD PE. Plan is to repeat an echocardiogram in a week and if still persistent pericardial issues and outpatient cardiac MRI.
Also consideration will be given for outpatient pericardiocentesis, left/right heart catheterization.
He was on hydrochlorothiazide and Norvasc which were discontinued as he was going to be on diuretics. His blood pressure was under goal
Consultants on board:
cardiology-Dr. Mari
Discharge Plan
-
Patient Disposition: Home (Routine Discharge)
Discharge Diagnosis/Procedures: CHF decompensation ;pericardial effusion
Condition: Fair
Diet: 2 Gram Sodium
Activity: As tolerated
Driving Restrictions: As prior to admission
Bathing Restrictions: None
Blood Work: BMP blood work -arrange it through your PCP
Specialty Instructions: Weigh Daily- Call MD for wt gain/loss 3 lbs overnight/5 lbs in 1 week
Instructions: *PCP/Other [employer] Heart Failure Instructions
Referrals:
Daquan Lewis CRNP [Family Provider] - in two to three days (get PPD read)
Naomy Mari MD [Active] - in less than 1 week
Prescriptions:
New
dapagliflozin propanediol [Farxiga] 10 mg Tablet
10 mg PO DAILY Qty: 30 0RF
potassium chloride 20 mEq Tablet,Er Particles/Crystals
20 meq PO DAILY Qty: 30 0RF
furosemide [Lasix] 80 mg tablet
80 mg PO DAILY Qty: 30 0RF
Continued
atorvastatin [Lipitor] 20 mg Tablet
20 mg PO HS
enalapril maleate 10 mg Tablet
10 mg PO DAILY
tamsulosin [Flomax] 0.4 mg Capsule
0.4 mg PO QPM
escitalopram oxalate [Lexapro] 20 mg Tablet
20 mg PO DAILY
clonazepam 0.5 mg Tablet
0.25 mg PO DAILYPRN PRN (Reason: anxiety)
Discontinued
amlodipine [Norvasc] 10 mg Tablet
10 mg PO DAILY
hydrochlorothiazide 25 mg Tablet
25 mg PO DAILY
ibuprofen [Advil] 200 mg Tablet
400 mg PO BIDPRN PRN (Reason: mild pain)
Discharge Orders:
Discharge Patient (As Directed); Ordered 01/20/24
Ordered By: Chris Zazueta
[2024-01-20] MEDS: FARXIGA 10 MG PO (15:30)
[2024-01-20] MEDS: PPD5TEST 5 UNITS INTRADERMA (15:30)
--- NOTE | 2024-01-21 14:15 | W.HF.CON ---
Heart Failure
- LV Function
Left ventricular function study result: LV Ejection fraction >40%
Ejection Fraction Percentage: 52
- ARNI
Patient already on ARNI: No
Heart Failure ARNI Not Indicated: LV Ejection Fraction >/= 40%
- ACEI/ARB
Patient already on ACEI/ARB: Yes
- Beta Jessica
Patient already on Evidence Based Beta Jessica: No
Heart Failure Evidence Based Beta Jessica Not Indicated: LV Ejection Fraction > 40%
- Mineralocorticord Receptor Antagonist
Patient already on MRA: No
Heart Failure MRA Not Indicated: LV Ejection Fraction > 40%
- SGLT-2 Inhibitor
Patient already on SGLT-2 Inhibitor: Yes
- NYHA CHF Classification
NYHA CHF Classification Level: Class III - Symptoms w/ min exertion, interferes w/ nml daily activity
- ACC/AHA Stage
ACC/AHA Stage: Stage C: Symptomatic Heart Failure
[2024-01-23 07:54] LABS: ANA, IgG Reflex to HEp-2 None Detected (None Detected)
[2024-01-23 15:34] LABS: Rheumatoid Agglutinin Less Than 10 IU (<10 IU)
--- NOTE | 2024-02-03 13:39 | HFEDUCATE ---
Pt had 72 hr phone call on 01/22/24 at 1:53 PM with Yelena Li to discuss hospitalization and HF self management. Pt has F/U appt on 01/23/24 at 1:30PM with LILY Rutledge.
== END 2024-01-20 16:10 | disposition home or self-care (01) | DRG 291 ==
LOC: 3 WEST ACU 21:31
PROVIDERS: ADMITTING PHYSICIAN Internal Medicine; ATTENDING PHYSICIAN Internal Medicine; CONSULT PHYSICIAN Internal Medicine Cardiovascular Disease; EMERGENCY PHYSICIAN Emergency Medicine; FAMILY PHYSICIAN Nurse Practitioner Family
DX: I11.0 Hypertensive heart disease with heart failure (principal); I50.31 Acute diastolic (congestive) heart failure; E87.1 Hypo-osmolality and hyponatremia; R17 Unspecified jaundice; I31.39 Other pericardial effusion (noninflammatory); I50.9 Heart failure, unspecified; N50.89 Other specified disorders of the male genital organs; E87.6 Hypokalemia; E78.00 Pure hypercholesterolemia, unspecified; F32.A Depression, unspecified; F41.9 Anxiety disorder, unspecified; E11.9 Type 2 diabetes mellitus without complications
CPT/HCPCS: 71046; 80048; 80053; 80061; 82248; 83036; 83735; 83880; 84443; 84484; 85025; 85027; 85379; 85652; 86038; 86140; 86430; 93005; 93306; 96365; 96366; 96375; 99285

== ENCOUNTER → 2024-01-31 08:08 | Outpatient (REF) | payer OTHER, SELFPAY | LOC: DHCBC HW 08:08 | PROVIDERS: ATTENDING PHYSICIAN Nurse Practitioner; FAMILY PHYSICIAN Nurse Practitioner Family | DX: I31.39 Other pericardial effusion (noninflammatory) (principal) | CPT/HCPCS: 93308 ==

== ENCOUNTER → 2024-09-10 10:53 | Outpatient (REF) | payer OTHER, SELFPAY | LOC: HWRAD 10:53 | PROVIDERS: ATTENDING PHYSICIAN Nurse Practitioner Family; REFERRING PHYSICIAN Surgery | DX: N50.89 Other specified disorders of the male genital organs (principal) | CPT/HCPCS: 76870; 93976 ==

== ENCOUNTER → 2024-09-29 08:30 | Outpatient (REF) | payer OTHER, SELFPAY | LOC: HWRAD 08:30 | PROVIDERS: ATTENDING PHYSICIAN Surgery; FAMILY PHYSICIAN Nurse Practitioner Family | DX: K40.20 Bilateral inguinal hernia, without obstruction or gangrene, not specified as recurrent (principal) | CPT/HCPCS: 72194; Q9967 ==

== ENCOUNTER → 2024-12-18 07:54 | Outpatient (REF) | payer OTHER, SELFPAY | LOC: HWRAD 07:54 | PROVIDERS: ATTENDING PHYSICIAN Internal Medicine Cardiovascular Disease; FAMILY PHYSICIAN Nurse Practitioner Family | DX: R18.8 Other ascites (principal) | CPT/HCPCS: 76700 ==

== ENCOUNTER → 2024-12-29 12:56 | Outpatient (REF) | payer OTHER, SELFPAY | LOC: HWRCS 12:56 | PROVIDERS: ATTENDING PHYSICIAN Internal Medicine Cardiovascular Disease; FAMILY PHYSICIAN Nurse Practitioner Family | DX: I34.0 Nonrheumatic mitral (valve) insufficiency (principal); I31.39 Other pericardial effusion (noninflammatory); I31.8 Other specified diseases of pericardium; R18.8 Other ascites | CPT/HCPCS: 93306 ==

== ENCOUNTER → 2025-05-27 07:01 | Outpatient (REF) | payer OTHER, SELFPAY ==
[2025-05-27 07:23] LABS: % Basophils 1.8 % (0-2); % Eosinophils 3.7 % (0-6); % Immature Granulocytes 0.4 % (0-0.5); % Lymphocytes 41.2 % (20.5-51.1); % Monocytes 8.5 % (1.7-9.3); % Neutrophils 44.4 % (42.2-75.2); Absolute Basophils 0.1 10^3/uL (0-0.2); Absolute Eosinophils 0.2 10^3/uL (0-0.7); Absolute Lymphocytes 2.1 10^3/uL (1.2-3.4); Absolute Monocytes 0.4 10^3/uL (0.1-0.6); Absolute Neutrophils 2.3 10^3/uL (1.4-6.5); Hematocrit 44.5 % (39.0-52.0); Hemoglobin 14.8 g/dL (13.0-18.0); Mean Corp Hgb Conc. 33.3 g/dL (33.0-37.0); Mean Corpuscular Hgb 31.5 pg (27.0-31.0); Mean Corpuscular Volume 94.7 fL (80.0-94.0); Mean Platelet Volume 10.8 fL (7.4-10.4); Nucleated Red Blood Cells % 0 % (-); Platelet Count 155 10^3/uL (130-400); Red Cell Dist. Width 13.9 % (11.5-14.5); White Blood Cell Count 5.1 10^3/uL (4.8-10.8)
[2025-05-27 07:42] LABS: PT 16.7 Sec (11.4-14.6)
[2025-05-27 07:45] VITALS: BP 139/99; BP_SYST 62
[2025-05-27 07:59] LABS: Blood Urea Nitrogen 25 mg/dl (9-20); Calcium 9.1 mg/dl (8.4-10.2); Carbon Dioxide 28 mmol/L (22-30); Chloride 108 mmol/L (98-107); Glucose 114 mg/dl (70-99); Sodium 144 mmol/L (135-145); eGFR > 60.00
[2025-05-27 08:40] VITALS: BP 137/93
[2025-05-27 09:53] LABS: Body Fluid WBC 580 /CUMM
[2025-05-27 09:56] LABS: Body Fluid Second Tech CMB
[2025-05-27 10:24] LABS: Body Fluid Albumin 2.8 g/dl; Body Fluid LDH 96 U/L; Body Fluid Protein 5.3 g/dl
== END ==
LOC: RADI 07:01
PROVIDERS: ATTENDING PHYSICIAN Internal Medicine Gastroenterology; FAMILY PHYSICIAN Nurse Practitioner Family; OTHER PHYSICIAN Physician Assistant
DX: R18.8 Other ascites (principal)
CPT/HCPCS: 88305; 36415; 49083; 80048; 82042; 83615; 84157; 85025; 85610; 87015; 87070; 87205; 88112; 89051

== ENCOUNTER → 2025-06-02 13:40 | Outpatient (REF) | payer OTHER, SELFPAY | LOC: RAD 13:40 | PROVIDERS: ATTENDING PHYSICIAN Internal Medicine Gastroenterology; FAMILY PHYSICIAN Nurse Practitioner Family | DX: R18.8 Other ascites (principal) | CPT/HCPCS: 76700; 93975 ==

== ENCOUNTER → 2025-06-30 14:14 | Outpatient (REF) | payer OTHER, SELFPAY | LOC: MRI 14:14 | PROVIDERS: ATTENDING PHYSICIAN Internal Medicine Gastroenterology; FAMILY PHYSICIAN Nurse Practitioner Family | DX: R18.8 Other ascites (principal) | CPT/HCPCS: 74183; 76391; A9581 ==